=== PATIENT | female | born 1965 | race American Indian/Alaskan Native ===

== ENCOUNTER 2021-05-11 14:13 | Outpatient (CLI) | payer OTHER ==
[2021-05-11 14:41] LABS: Basophils % (Auto) 0.5 % (0.0-1.8); Eosinophils # (Auto) 0.1 K/mm3 (0.0-0.4); Eosinophils % (Auto) 1.6 % (0.0-4.3); Hematocrit 40.3 % (30.3-42.9); Hemoglobin 13.4 gm/dl (10.1-14.3); Lymphocytes # (Auto) 1.1 K/mm3 (1.2-5.4); Lymphocytes % (Auto) 15.7 % (13.4-35.0); Mean Corpuscular HGB Conc 33 % (30-34); Mean Corpuscular Volume 90 fl (79-97); Monocytes # (Auto) 0.6 K/mm3 (0.0-0.8); Monocytes % (Auto) 7.7 % (0.0-7.3); Platelet Count 252 K/mm3 (140-440); Red Blood Count 4.48 M/mm3 (3.65-5.03); Red Cell Distribution Width 13.7 % (13.2-15.2)
[2021-05-11 14:56] LABS: Erythrocyte Sedimentation Rate 45 mm/Hr (0-20)
[2021-05-11 15:01] LABS: Alanine Aminotransferase 8 units/L (7-56); Albumin 4.1 g/dL (3.9-5); Blood Urea Nitrogen 14 mg/dL (7-17); Calcium 9.6 mg/dL (8.4-10.2); Chol/HDL Ratio 3.49 %; HDL Cholesterol 65 mg/dL (40-59); Hemolysis Index 14; LDL Cholesterol,Direct 155 mg/dL (50-130)
[2021-05-11 15:04] LABS: BUN/Creatinine Ratio 28
[2021-05-15 14:44] LABS: ANA Screen, IFA Negative (Negative)
[2021-05-16 13:02] LABS: Vitamin D, 25-OH, D2 <4 ng/mL
== END 2021-05-11 14:14 | disposition home or self-care (01) ==
LOC: LAB 14:13
PROVIDERS: ATTEND Specialist
DX: I63.032 Cerebral infarction due to thrombosis of left carotid artery (principal); I63.031 Cerebral infarction due to thrombosis of right carotid artery
CPT/HCPCS: 36415; 80053; 80061; 82306; 82607; 83036; 83921; 84443; 85025; 85652; 86038; 86140; 86592